=== PATIENT | male | born 1975 | race Caucasian/White ===

== ENCOUNTER 2018-10-04 14:17 | Outpatient (REF) | payer MEDICAID, SELFPAY ==
[2018-10-04 18:41] LABS: HCT 36.4 % (40.0-50.0); HGB 12.6 g/dL (13.5-17.5); Mean Corp. HGB Concentration 34.6 g/dL (32.0-36.0); Mean Corpuscular Hemoglobin 29.8 pg (27.0-33.0); Mean Corpuscular Volume 86.1 fL (80-95); Mean Platelet Volume 10.1 fL (8.0-11.0); Platelet Count 256 x1000/uL (130-400); RBC 4.23 m/cumm (4.50-6.00); RBC Distribution Width 13.2 % (11.8-14.1); White Blood Cell Count 11.53 k/cumm (4.4-10.8)
[2018-10-04 19:10] LABS: ALT 46 U/L (12-78); AST 42 U/L (15-37); Albumin 4.7 g/dL (3.4-5.0); Alkaline Phosphatase 55 U/L (46-116); Anion Gap 12.6 mmol/L (3-11); BUN 15 mg/dL (7-18); Bilirubin, Total 0.4 mg/dL (0.2-1.0); CO2 25.4 mmol/L (21.0-32.0); CREATININE 0.92 mg/dL (0.70-1.30); Calcium 9.4 mg/dL (8.5-10.1); Chloride 101 mmol/L (98-107); Glucose 117 mg/dL (70-100); Potassium 3.6 mmol/L (3.5-5.1); Sodium 139 mmol/L (136-145); TSH (W/Ref FT4) 2.36 uIU/mL (0.358-3.74)
[2018-10-07 11:28] LABS: Hepatitis C Ab w Rflx HCV PCR Negative (NEGAT)
[2018-10-07 11:32] LABS: HBs Antibody, Quant >1000.0 mIU/mL; Hepatitis B Surface Ab Positive; Hepatitis B Surface Ag Negative (NEGAT)
[2018-10-07 11:49] LABS: HIV-1/2 Ag & Ab Screen Negative (NEGAT)
== END 2018-10-04 14:37 ==
LOC: NCHCN 14:17
PROVIDERS: PCP Family Medicine; Visit Provider Family Medicine
DX: F11.20 Opioid dependence, uncomplicated (principal); R63.4 Abnormal weight loss; N50.9 Disorder of male genital organs, unspecified; Z11.3 Encounter for screening for infections with a predominantly sexual mode of transmission; Z11.4 Encounter for screening for human immunodeficiency virus [HIV]; Z11.59 Encounter for screening for other viral diseases
CPT/HCPCS: 80053; 85027; 86706; 86803; 87340; 87389; 84443

== ENCOUNTER 2018-10-15 00:16 | Outpatient (CLI) | payer MEDICAID, SELFPAY ==
--- NOTE | 2018-10-15 13:08 | DI.US_ITS ---
SYMPTOM/DIAGNOSIS: TESTICULAR MASS, RT, N50.9 TESTICULAR ULTRASOUND: The right testicle measures 3.8 by 2.1 by 2.2 cm. and is homogeneous with good color flow. Right epididymis measures 13 by 9 by 8 mm. and is homogeneous with good color flow. The left testicle measures 3.9 by 1.6 by 2.6 cm., is homogeneous and there is good color flow. The left epididymis measures 9 by 12 by 6 mm., is homogeneous with good color flow. There is a question regarding bilateral scrotal pearls, right measuring 2 and 3 mm.; left, 2 mm. There are small bilateral hydroceles, right measuring 4.1 by 0.8 by 2.5 cm.; left measuring 2.5 by 1.2 by 2.9 cm. The left varicocele dilates up to 3.4 mm. with a jozef eloy va maneuver. There is a 3 mm. left epididymal head cyst. There are bilateral testicular appendages, on the right side measuring 7 by 7 by 3 mm. containing calcifications and on the left side measuring 8 by 3 by 5 mm. Note is also made of bilateral epididymal appendages, on the right side measuring 3 and 7 mm.; on the left side, measuring 3 mm. where there is an evident cyst. SUMMARY: No evidence of a testicular mass. Please see the above discussion.
== END 2018-10-15 00:36 ==
PROVIDERS: PCP Family Medicine; Visit Provider Family Medicine
DX: N50.9 Disorder of male genital organs, unspecified (principal); N43.3 Hydrocele, unspecified; N50.3 Cyst of epididymis
CPT/HCPCS: 76870

== ENCOUNTER 2018-11-18 09:59 | Outpatient (REF) | payer MEDICAID, SELFPAY ==
[2018-11-18 15:44] LABS: Iron 40 ug/dL (50-175); Total Iron Binding Capacity 270 ug/dL (250-450); Transferrin Sat 15 % (20-55)
[2018-11-18 16:13] LABS: Ferritin 39 ng/mL (8-388); Folate 10.3 ng/mL (8.6-20.0); Vitamin B12 1177 pg/mL (193-986)
[2018-11-19 09:19] LABS: IgA 309 mg/dL (85-499)
[2018-11-19 19:37] LABS: Tissue Transglutaminase Ab IgA <1.2 U/mL
[2018-11-21 09:19] LABS: Testosterone, Free 5.94 ng/dL (4.46-17.1); Testosterone, Total 495 ng/dL (240-950)
== END 2018-11-18 10:19 ==
LOC: NCHCN 09:59
PROVIDERS: PCP Family Medicine; Visit Provider Family Medicine
DX: D64.9 Anemia, unspecified (principal)
CPT/HCPCS: 82784; 84402; 84403; 82607; 82728; 82746; 83516; 83540; 83550

== ENCOUNTER 2019-01-28 15:59 | Outpatient (REF) | payer MEDICAID, SELFPAY ==
[2019-02-01 05:20] LABS: Amphetamine 16123 ng/mL (Cutoff: 25); Amphetamines Interpretation Positive.; MDA (Ecstasy Metabolite) Negative ng/mL (Cutoff: 25); MDMA (Ecstasy) Negative ng/mL (Cutoff: 25); Methamphetamine Negative ng/mL (Cutoff: 25); Phentermine Negative ng/mL (Cutoff: 25); Pseudoephedrine/Ephedrine Negative ng/mL (Cutoff: 25)
[2019-02-04 09:55] LABS: Methylphenidate 1804 ng/mL; Ritalinic Acid 2410 ng/mL
== END 2019-01-28 16:19 ==
LOC: NCHCN 15:59
PROVIDERS: PCP Family Medicine; Visit Provider Nurse Practitioner Psychiatric/Mental Health
DX: Z51.81 Encounter for therapeutic drug level monitoring (principal)
CPT/HCPCS: 80324; 80360

== ENCOUNTER 2019-02-25 14:18 | Outpatient (REF) | payer MEDICAID, SELFPAY ==
[2019-02-25 19:26] LABS: *AMPHETAMINES SCREEN URINE POSITIVE (Negative); *BARBITURATES SCREEN URINE Negative (Negative); *BENZODIAZEPINES SCREEN URINE Negative (Negative); Cannabinoids THC Negative (Negative); Cocaine Screen,Urine Negative (Negative); METHADONE URINE SCREEN Negative (Negative); OPIATES URINE SCREEN Negative (Negative)
[2019-02-25 19:29] LABS: Tricyclic Antidepressants Negative (Negative)
== END 2019-02-25 14:38 ==
LOC: NCHCN 14:18
PROVIDERS: PCP Family Medicine; Visit Provider Nurse Practitioner Psychiatric/Mental Health
DX: Z51.81 Encounter for therapeutic drug level monitoring (principal)
CPT/HCPCS: 80307

== ENCOUNTER 2021-09-16 13:42 | Outpatient (REF) | payer MEDICAID, SELFPAY ==
[2021-09-16 18:59] LABS: Calculated LDL 90 mg/dL (<100); Cholesterol 153 mg/dL (<200); HDL Cholesterol 53 mg/dL (40-60); Triglyceride 52 mg/dL (<150)
[2021-09-19 10:15] LABS: Hepatitis C Ab w Rflx HCV PCR Negative (Negative)
[2021-09-19 10:20] LABS: HIV-1/2 Ag & Ab Screen Negative (Negative)
== END 2021-09-16 13:43 | disposition home or self-care (01) ==
LOC: NCHCN 13:42
PROVIDERS: PCP Family Medicine; Visit Provider Family Medicine
DX: Z13.220 Encounter for screening for lipoid disorders (principal); Z11.4 Encounter for screening for human immunodeficiency virus [HIV]; Z11.59 Encounter for screening for other viral diseases; Z00.00 Encounter for general adult medical examination without abnormal findings
CPT/HCPCS: 80061; 86803; 87389

== ENCOUNTER 2022-09-29 09:58 | Day surgery (SDC) | payer MEDICAID, SELFPAY ==
--- NOTE | 2022-09-28 20:13 | PDOC.DSDIS_ITS ---
Date of service: 09/29/22 Time of Service: 12:02 Discharge Plan Disposition Patient Disposition: Home Discharge Details Reason For Visit: colon scope Attending Provider: Vivien Mcgrath Primary Care Provider: Margaret Meier Home Meds and New Rx's Prescriptions: Continued fluocinolone 0.01 % cream 1 applic topical BID calcipotriene [Dovonex] 0.005 % cream 1 applic topical BID Rx Instructions: rub in gently and completely Nizoral A-D 1 % shampoo 1 applic topical Q3D selenium sulfide 2.25 % shampoo 1 applic topical DAILY Rx Instructions: massage into affected area; leave on for 10 mins ; rinse off thoroughly betamethasone dipropionate 0.05 % ointment 1 applic topical DAILY buprenorphine-naloxone 12-3 mg film 1 film sublingual DAILY Discontinued polyethylene glycol 3350 17 gram/dose powder 238 g PO ONCE Qty: 238 0RF Rx Instructions: take per colonoscopy instructions bisacodyl [Dulcolax (bisacodyl)] 5 mg tablet,delayed release (DR/EC) 5 mg PO ONCE Qty: 4 0RF Rx Instructions: take per colonoscopy instructions Discharge Instructions Additional Instructions: DSU Colonoscopy Post- Op Instructions Instructions for Everyone who is given Anesthesia: For your safety, please do the following for the next twenty-four (24) hours: *Do Not operate a motor vehicle (car, truck, motorcycle, etc.) *Do Not drink alcoholic beverages or use any recreational drugs for the first 24 hours or while taking pain medications. The medications in your body may have a reaction that can be dangerous. *Do Not make any important decisions or sign any important papers. Findings: x2 large polyps Follow up: Repeat scope in 2-3 yrs time. 1. No lifting over 20 pounds or strenuous activity for the first 24 hours after your procedure. After 24 hours there are no restrictions on your activity but you may feel fatigued for a few days. 2. After you arrive home you may have a light meal and return to your normal diet as you can tolerate it without feeling sick to your stomach. 3. You may have a bloated, gaseous feeling in your belly (abdomen) after a colonoscopy. Passing gas and belching will help. Walking or lying down on your left side with your knees flexed may relieve the discomfort. -No aspirin/ibuprofen/Naprosyn for 5 days. Call the office at [phone] (Office) or [phone] (Hospital) right away if you notice any of the following: a.Vomiting of blood or ?coffee ground stools?. b.Rectal bleeding 1Tbsp, blood clots or continuous bleeding. c.Severe belly (abdominal) pain. d.A hard distended belly (abdomen) and an inability to pass gas. 4. Please don?t expect to have a normal BM (bowel movement) for 2-3 days after your procedure. 5. If there are questions regarding the findings of your procedure, please contact your doctor 6. If you are unable to contact your doctor with a problem, contact the hospital at [phone]. 7. Continue all your regular medications unless directed otherwise. I understand the above instructions and have no questions. Signature of Patient or Adult Escort Name of Responsible Adult Escort Signature of Nurse Date/Time Activity:: see above Diet:: see above Discharge Orders Discharge Orders: Discharge Order (Routine); Ordered 09/29/22 Ordered By: Vivien Mcgrath DS: Diagnosis Discharge Diagnosis (1) Anemia: Status: Chronic (2) GERD (gastroesophageal reflux disease): (3) History of asthma: (4) History of crack cocaine use: (5) History of heroin use: (6) Opioid dependence: (7) Positive colorectal cancer screening using Cologuard test: Status: Acute Asessment and Plan: The patient is seen and examined after their colonoscopy.? The patient has been able to pass gas.? They are not having abdominal pain.? They have been able to tolerate liquids and a snack.? They do not have any nausea or vomiting.? They are not having any chest pain or shortness of breath.??? They are not having any rectal bleeding..? Their vital signs have been stable-see nursing notes. We discussed findings during their colonoscopy, and any biopsies that were done/polyps that were removed. The patient will be sent a letter with any biopsy results, and when to repeat the colonoscopy.-see discharge instructions. Patient was given explicit instructions to follow-up regarding colonoscopy-refer to discharge instructions.? We reviewed resumption of medications. Patient verbalized understanding and discharged in stable and satisfactory condition- See nursing notes.
--- NOTE | 2022-09-29 08:50 | W.COLOREPORT ---
Date of service: 09/29/22 Time of Service: 08:50 Colonoscopy Report Date of procedure: 09/29/22 Pre-op diagnosis general: + Cologuard Post-op diagnosis procedure note: other (Polyps x2) Surgeon: Vivien Mcgrath Anesthesia Type: General:No Airway Estimated blood loss (mL): 3 Pathology: other Complications: None Disposition: same day Prep: Miralax/Dulcolax Retraction Time: 32 Procedure Description: After informed consent was obtained the patient was taken to the procedure room and placed in a left decubitous position. Monitors were applied and a time out was done. The patients name, date of , procedure, allergies to medications and metal in their body was reviewed. The patient was then sedated. Once sedated and comfortable a rectal exam was done. External exam was normal. Internal exam revealed a normal sphincter tone and no palpable masses. The prostate normal. The s withoutcope was then introduced and retrofelexed. no internal hemorrhoids were identified. The scope was then advanced to the cecum without difficulty. The TI and appendiceal orifice were identified. The prep was BBPS 3 in all segments for a total of 9 . The scope was then slowly retracted over 32 minutes back into the rectum. He had a 1.5 cm flat polyp in the cecum. This was injected with saline to elevate the mucosa. Unfortunately did come out in piecemeal. Part with a snare and part with a cold biting forcep. All specimen is retrieved and no bleeding is noted. 2 clips were placed across the defect. There is also a 1 cm pedunculated polyp at 40 cm. This is removed with cold snare. All specimens are retrieved and no bleeding is noted. No diverticula are visualized today. The mucosa is normal pink and healthy with a normal vascular pattern. The scope was removed and the patient was woken up and taken back to Same day surgery in stable condition. The patient tolerated the procedure well and there were no immediate complications. Follow up: The patient should follow up in `3 years unless they develop changes in bowel habits or other new gastrointestinal complaints.
[2022-09-29 10:14] VITALS: BP 117/86; PULSE 64; RESP 17; TEMP 37.1; O2SAT 97
[2022-09-29] MEDS: Lactated Ringers 1,000 ML 80 ML IV (10:24)
--- NOTE | 2022-09-29 10:39 | W.ANESPRE ---
General Info Date of Service Date Performed: 09/29/22 Height: 5 ft 9 in Weight: 60 kg Body Mass Index (BMI): 19.5 Surgical Procedure: Operation Date: 09/29/22 10:50 Proposed Procedure Side Surgeon tj Mcgrath DO Meds Allergies and Home Medications Allergies Allergy/AdvReac Type Severity Reaction Status Date / Time No Known Drug Allergies Allergy Verified 09/29/22 10:10 Home Medication Medication Instructions Recorded betamethasone dipropionate 0.05 % 1 applic topical DAILY 02/22/22 topical ointment buprenorphine 12 mg-naloxone 3 mg 1 film sublingual DAILY 02/22/22 sublingual film calcipotriene 0.005 % topical 1 applic topical BID 02/22/22 cream (Dovonex) fluocinolone 0.01 % topical cream 1 applic topical BID 02/22/22 ketoconazole 1 % shampoo (Nizoral 1 applic topical Q3D 02/22/22 A-D) selenium sulfide 2.25 % shampoo 1 applic topical DAILY 02/22/22 Current Visit Medications: Current Medications Generic Name Dose Route Start Last Admin Trade Name Freq PRN Reason Stop Dose Admin Hyoscyamine Sulfate 0.125 mg 09/29/22 08:16 Hyoscyamine 0.125 Mg Sl/Oral/Chew SL DIRECTED PRN Ringer's Solution 1,000 mls @ 80 mls/hr 09/29/22 06:00 09/29/22 10:24 IV 09/29/22 23:59 80 mls/hr INFUSION JUANY Administration IV Miscellaneous Supplies 1 each 09/29/22 06:00 Iv Access IV 09/29/22 23:59 DIRECTED JUANY Ondansetron HCl 4 mg 09/29/22 08:16 Ondansetron 4 Mg/2 Ml Vial IVP Q4H PRN PRN Nausea / Vomiting Sodium Chloride 0 ml 09/29/22 06:00 Normal Saline Flush 10 Ml Syr IV 09/29/22 23:59 PRN PRN Sodium Chloride 0 ml 09/29/22 06:00 Normal Saline 10 Ml Vial IJ 09/29/22 23:59 DIRECTED PRN Sterile Water 0 ml 09/29/22 06:00 Water,Injection,Sterile 10 Ml Vial IJ 09/29/22 23:59 DIRECTED PRN PFSH Active Problems Active Problems: Problem Status Onset Code Psoriasis L40.9 Situational depression F43.21 Attention deficit disorder F98.8 Anemia D64.9 Positive colorectal cancer screening using Cologuard test R19.5 Medical History Medical History Epididymal cyst FHx: cholecystectomy GERD (gastroesophageal reflux disease) History of asthma History of crack cocaine use History of heroin use Mass of right testicle Opioid dependence Tobacco Smoking/Tobacco Use Status: Former Tobacco Use Alcohol Alcohol Intake: current Alcohol intake frequency: a few times a week Alcohol type: beer Substance Use Substance use: Daily Substance use type: marijuana Details: Former Drug abuse: Cocaine and Heroin last use 2019 Vital Signs and Lab Results Vital Signs Most Recent Vital Signs in EMR: Most Recent Vital Signs Temp Pulse Resp BP Pulse Ox 37.1 C 64 17 117/86 97 09/29/22 10:14 09/29/22 10:14 09/29/22 10:14 09/29/22 10:14 09/29/22 10:14 Lab Results Blood Type / Crossmatch: No Data to Display Complete Blood Count: No Data to Display Complete Metabolic Panel: No Data to Display Liver Function Panel: No Data to Display Coagulation Panel: No Data to Display Cardiac Panel: No Data to Display Arterial Blood Gas: No Data to Display Venous Blood Gas: No Data to Display Pancreas Panel: No Data to Display Thyroid Panel: No Data to Display Infectious Disease: No Data to Display Blood Cultures: No Data to Display Toxicology Panel: No Data to Display Anesthesia Assessment and Plan Anesthesia History Personal History: No History of Anesthesia Complications Family History: No Family History of Anesthesia Complications Exercise Tolerance Exercise Tolerance: Metabolic Equivalents>4 Pertinent Negatives Pertinent Negatives: No Symptoms of GERD, No Major Cardiovascular Symptoms or Complaints, No Major Pulmonary Symptoms or Complaints and No History of CVA/TIA Cardiac & Pulmonary Exam Cardiac Exam: Normal S1/S2 Heart Sounds Pulmonary Exam: Clear Bilateral Breath Sounds Implantable Cardiac Device Does patient have a Pacemaker or an ICD?: No Airway Exam Known Difficult Airway: No Mallampati Class: 2 Mouth Opening: Normal (> 3cm) Thyromental Distance: Greater than 3 cm Neck Range of Motion: Full ROM Neck Circumference: Normal Teeth Condition: Generalized Poor Dentition and Removable Dentures/Plates Upper ASA Classification ASA Score: ASA 2 Emergency Case?: No NPO Status NPO Status: NPO Clears >2 hours, Solids >8 hours Anesthesia Plan Resuscitation Status: Full Code Anesthesia Technique: General Anesthesia Airway Planned: Natural Airway Monitors Used: Standard Monitors
[2022-09-29 10:50] VITALS: BMI 19.5
--- NOTE | 2022-09-29 11:09 | BOWEL_PTH ---
PATIENT: Andreas Barksdale LOC: [facility] U#:[id number] AGE/SX: 47/M ROOM: RE09/29/[address]: Vivien Mcgrath : 1975 BED: DIS: 09/29/2022 SPEC #: [id number] RECD: 09/29/22 12:53 STATUS: JARRET REQ #: [id number] MARY: 09/29/22 11:[address]: Vivien Mcgrath DEPT: Surgical Specimen RECD BY: Claudia Gonzalez ENTERED: 09/29/22 12:53 SP TYPE: Bowel OTHR DR: Margaret Meier Tissues: 1 - BIOPSY BOWEL 2 - BIOPSY BOWEL Procedures: GROSS AND MICRO LEVEL 4 Comments: [id number]
[2022-09-29] MEDS: Normal Saline Flush 10 ML SYR (11:32)
[2022-09-29 11:53] VITALS: BP 94/78; PULSE 54; RESP 16; TEMP 36.6; O2SAT 96
[2022-09-29 12:30] VITALS: BP 108/72; PULSE 53; RESP 16; TEMP 36.3; O2SAT 99
--- NOTE | 2022-09-29 12:48 | W.ANESPOSTOP ---
Postoperative Evaluation Date, Time and Location Date Performed: 09/29/22 Time Performed: 12:48 Patient Location: Day Surgery Unit Vital Signs Most Recent Imported Vital Signs: Most Recent Vital Signs Temp Pulse Resp BP Pulse Ox 36.6 C 54 L 16 94/78 L 96 09/29/22 11:53 09/29/22 11:53 09/29/22 11:53 09/29/22 11:53 09/29/22 11:53 Pain Score Most Recent Pain Score: Most Recent Pain Score Pain Level 0 09/29/22 11:53 Assessment Mental Status: Awake (Alert & Oriented to Patient Baseline) Airway and Respiratory Function: Patent airway with normal (patient baseline) respiratory exam Cardiovascular Function: Hemodynamically Stable Hydration Status: Adequately Hydrated Nausea & Vomiting: No Nausea or Vomiting Pain: Pt. Denies Any Pain Peripheral Nerve Block: Patient did not receive a nerve block
== END 2022-09-29 13:05 | disposition home or self-care (01) ==
PROVIDERS: PCP Family Medicine; Visit Provider Surgery
PROC: 0DJD8ZZ Inspection of Lower Intestinal Tract, Via Natural or Artificial Opening Endoscopic (ICD-10-PCS; CPT 45378; principal; 2022-09-29 10:45)
DX: R19.5 Other fecal abnormalities; K63.5 Polyp of colon
CPT/HCPCS: 45385; 45381; 88305; J2250

== ENCOUNTER 2024-10-31 12:37 | Outpatient (REF) | payer MEDICAID, SELFPAY ==
[2024-10-31 16:22] LABS: HCT 37.5 % (40.0-50.0); HGB 12.9 g/dL (13.5-17.5); MCH 30.4 pg (27.0-33.0); MCHC 34.4 % (32.0-36.0); MCV 88 fL (80-95); MPV 9.6 fL (8.0-11.0); Platelet Count 267 10^3/uL (130-400); RBC 4.24 10^6/uL (4.36-5.78); RDW-SD 38.5 fL; WBC 5.83 10^3/uL (4.4-10.8)
[2024-10-31 16:29] LABS: ESR 3 mm/hr (0-15)
[2024-10-31 16:52] LABS: ALT 35 U/L (16-63); AST 22 U/L (15-37); Albumin 4.5 g/dL (3.4-5.0); Alkaline Phosphatase 51 U/L (46-116); Anion Gap 8.9 mmol/L (3-11); BUN 7 mg/dL (7-18); Bilirubin, Total 0.4 mg/dL (0.2-1.0); C-Reactive Protein < 0.50 mg/dL (<or=0.5); CO2 30.1 mmol/L (21.0-32.0); CREATININE 0.7 mg/dL (0.70-1.30); Calcium 9.3 mg/dL (8.5-10.1); Chloride 99 mmol/L (98-107); Estimated GFR 113.66 (mL/min/1.73m2); Glucose 106 mg/dL (74-106); Potassium 3.9 mmol/L (3.5-5.1); Sodium 138 mmol/L (136-145); TSH (W/Ref FT4) 1.73 uIU/mL (0.36-3.74); Total Protein 7.9 g/dL (6.4-8.2)
[2024-10-31 18:40] LABS: Ferritin 107 ng/mL (26-388); Vitamin B12 1483 pg/mL (193-986)
[2024-10-31 20:37] LABS: Iron 78 ug/dL (65-175); Total Iron Binding Capacity 289 ug/dL (250-450); Transferrin Sat 27 % (20-55)
[2024-11-03 10:12] LABS: Cyclic Citrullinated Peptide <2.5 U/mL (<5.0)
[2024-11-03 10:17] LABS: Folate 3.9 ng/mL (See Note)
[2024-11-03 14:01] LABS: ANA Interpretation Positive (Negative); ANA Titer Pattern 1:80 Speckled
== END 2024-10-31 12:38 | disposition home or self-care (01) ==
LOC: NCHCN 12:37
PROVIDERS: PCP Family Medicine; Visit Provider Family Medicine
DX: R53.83 Other fatigue (principal); M25.59 Pain in other specified joint; D64.9 Anemia, unspecified
CPT/HCPCS: 80053; 85027; 85652; 86200; 82607; 82728; 82746; 83540; 83550; 84443; 86038; 86140